=== PATIENT | male | born 1995 | race Caucasian/White ===

== ENCOUNTER 2017-11-09 02:12 | Emergency (ER) | payer SELFPAY ==
[2017-11-09 02:13] VITALS: BP 135/83; PULSE 83; RESP 16; TEMP 36.5; O2SAT 99; BMI 21.0
[2017-11-09] MEDS: Carbamide Peroxide 15 ML Bottle 5 DRP OTIC (03:15)
--- NOTE | 2017-11-09 03:45 | ED.DCSUM_ITS ---
- ER Visit Summary Date of Service: 11/09/17 Chief Complaint: Decreased hearing from left ear History of Present Illness: The patient is a 22 M who presents with decreased hearing from the left ear. He noticed it about 2 days ago after swimming. He complains of some mild pain as well. He also notes congestion and rhinorrhea. No fevers no vomiting review of systems otherwise negative. Physical Examination: Afebrile vitals are normal There is a cerumen impaction on the left after this was removed bilateral tympanic membranes are normal Heart regular rate and rhythm Lungs are clear Abdomen soft Test Results: Not indicated Emergency Department Course and Treatment: Debrox was instilled in the left ear and was irrigated by nursing staff. On reevaluation the cerumen impaction is completely resolved and tympanic membrane is normal. Treatment Plan: [] Disposition: Discharge Impression: Cerumen impaction This note was generated with [employer] dictation software. It may contain incorrect words, spelling, and punctuation that were not noted in review of the chart prior to signing ED Disposition - Plan for ED Patient: Chief Complaint: Ear Problem Referrals: Care Physician,No Primary [Primary Care Provider] -
--- NOTE | 2017-11-09 03:45 | ED.DEP ---
ED Disposition - Plan for ED Patient: Chief Complaint: Ear Problem Instructions: ED Cerumen Impaction Treated Referrals: Care Physician,No Primary [Primary Care Provider] -
[2017-11-09 03:48] VITALS: RESP 16
== END 2017-11-09 03:49 | disposition home or self-care (01) ==
PROVIDERS: Emergency Provider Emergency Medicine
DX: H61.22 Impacted cerumen, left ear (principal); Z72.0 Tobacco use
CPT/HCPCS: 99283

== ENCOUNTER 2020-01-12 18:18 | Observation (INO) | payer OTHER, SELFPAY ==
[2020-01-12] VITALS (8 sets, daily range): BP systolic 123–138; BP diastolic 72–89; PULSE 60–95; RESP 16; TEMP 35.9–36.8; O2SAT 97–100; BMI 21.2
[2020-01-12] MEDS: Ketorolac 30 MG/ML Syringe IM (18:41)
[2020-01-12] MEDS: Diphth,Pertuss(Acell),Tet Vac 0.5 ML Vial IM (18:42)
--- NOTE | 2020-01-12 18:52 | RAD_ITS ---
STUDY: X-RAY - RIGHT KNEE REASON FOR EXAM: Male, 24 years old. LACERATION MEDIAL RT KNEE FROM KNIFE AT WORK TECHNIQUE: 4 view(s) of the knee. COMPARISON: None. FINDINGS: Normal visualized distal femur. Normal visualized proximal tibia and fibula. Normal proximal tibiofibular articulation. Normal medial femorotibial compartment. Normal lateral femorotibial compartment. Normal patellofemoral articulation. There is intra-articular gas in the knee. RAD/Knee 4 or More Views IMPRESSION: Intra-articular gas is noted in the knee. Electronically Signed: Vahe Hurt DO at 19:15 EDT Tel [phone], Service support ,
--- NOTE | 2020-01-12 19:05 | ED.VISSUMM ---
- ER Visit Summary Date of Service: 01/12/20 Chief Complaint: Laceration History of Present Illness: The patient is a 24 M with no primary care physician. He is unsure when his last tetanus shot was. He was cutting a pipe with a curved blade when the blade slipped off and entered his right knee. He reports that he has a sharp pain is 4-10 at rest and 7-10 with movement. He denies any paresthesias distally. He denies any injuries or complaints. Physical Examination: Vitals: Stable. Afebrile. General: Well-nourished and well-developed. Head: Normocephalic atraumatic. Neck: Supple, no lymphadenopathy. No JVD. Nontender. Cardiovascular: Regular rate and rhythm. No murmurs. Respiratory: No respiratory distress. Clear to auscultation bilaterally. Abdominal: Soft, nontender, nondistended, normal bowel sounds. No guarding, rebound, or peritoneal signs. Back: Nontender. Extremities: Approximately 2 cm laceration just medial to the right patellar tendon with no active bleeding. He is neurovascular intact distally. No edema. Skin: Normal color, no rash. Neurologic: Alert and oriented ?3. Cranial nerves II through XII are intact. Normal strength and sensation. Psych: Normal affect. Test Results: X-ray does show intra-articular air. Emergency Department Course and Treatment: Patient had his tetanus updated. He had an IV placed and given Ancef IV. Treatment Plan: The patient was discussed with Dr. Parra. He will be in to take him to the operating room for washout. Disposition: To the operating room in stable condition. Impression: 1. 2 cm laceration right knee with intra-articular extension. This note was generated with [employer] dictation software. It may contain incorrect words, spelling, and punctuation that were not noted in review of the chart prior to signing ED Disposition - Plan for ED Patient: Referrals: Care Physician,No Primary [Primary Care Provider] -
[2020-01-12] MEDS: Cefazolin 2 GM in 0.9% Normal Saline 100 ML IV ×2 (19:50→21:57)
[2020-01-12] MEDS: 0.9% Normal Saline 1,000 ML 1000 ML IV (19:57)
[2020-01-12] MEDS: Bupiv/Epi 0.5% Mpf 30 ML Vial (20:21)
[2020-01-12] MEDS: Epinephrine (1 mg/ml) 1 MG/ML VIAL (20:21)
--- NOTE | 2020-01-12 20:21 | PCM.HP.STD ---
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 Patient did proceed to the emergency department where x-rays demonstrated in particular air was given tetanus and 2 g of Ancef in the emergency room. Past Medical History Allergies No Known Allergies Allergy (Verified 01/12/20 18:20) Home Medications: Ambulatory Orders Medication Instructions Recorded NK 11/09/17 Smoking Status: Current every day smoker Review of Systems Constitutional: Denies: Anorexia, Chills, Fever, Malaise, Weakness, Fatigue Musculoskeletal: Reports: - - Right knee with 3 cm deep laceration to the medial knee medial to the patella superior to the joint line no gross motor deficits distally VTE Information - Inpt Only VTE Present on Admission: No VTE Mechan Device Prophylaxis: SCD's Objective: X-ray demonstrates no bony pathology but there is intra-articular air right knee - Physical Exam Vitals/I&O's: Vital Signs Temp Pulse Resp BP Pulse Ox 98.2 F 82 16 123/72 H 99 01/12/20 19:54 01/12/20 19:54 01/12/20 19:54 01/12/20 18:19 01/12/20 19:54 Oxygen Delivery Method Room Air Weight: 170 lb Body Mass Index (BMI) 21.2 General: Alert, Oriented x3, Cooperative, No apparent distress Laboratory Results 01/12/20 19:30: COVID-19 ([facility]) Pending Assessment/Plan Laceration to right knee intra-articular History of patellar dislocation and ligament injury is unknown Plan to proceed to the OR for irrigation debridement of wound will use arthroscopic instrumentation for thorough washout he was already started on antibiotics will be admitted for 4 postoperative doses of antibiotics IV and then switched to oral on discharge
[2020-01-12 20:33] LABS: Probe Check PASS; Specimen Processing Control PASS
--- NOTE | 2020-01-12 21:40 | DCINST_ITS ---
Discharge Diet: No Restrictions Weight Bearing Status: No weight bearing Additional Instructions: Keep dressing on clean and dry neck 72 hours. After 72 hours may remove dressing and begin showering daily with antibacterial soap. Do not submerge underwater for 3 weeks postoperatively as in tub or pool or bonner. Courage knee range of motion but do not Hyperflex knee past 90 degrees for 6 weeks postoperatively do not bear weight on right lower extremity for 6 weeks postoperatively. Use crutches for assisted ambulation. Follow-up with me Dr. Parra 2 weeks postop. Call with any questions or concerns. Take pain medication as prescribed as needed only can be addictive and abusive. Supplement with Tylenol and [id number] NSAID when able. Take antibiotic as prescribed. Call with any fever over 101 that is treated with Tylenol. Allergies/Adverse Reactions: Allergies No Known Allergies Allergy (Verified 01/12/20 18:20) Medications to take at Discharge Cephalexin [Keflex] 500 mg PO Q8 5 Days #15 cap 01/12/20 Oxycodone [Oxyir] 5 mg PO Q6H PRN PRN #30 tab 01/12/20 The following prescriptions were given: Cephalexin [Keflex] 500 mg PO Q8 5 Days #15 cap Prescription Printed Oxycodone [Oxyir] 5 mg PO Q6H PRN PRN #30 tab PRN Reason: Pain Or Fever Prescription Printed Primary Care Physician: Care Physician,No Primary [Primary Care Provider] - Test Results: Test results from this visit will be discussed in further detail at your follow- up appointment, if applicable. Please Follow Up With: Jj Parra DO - 2 weeks
--- NOTE | 2020-01-12 21:43 | OP.PCM_ITS ---
Report of Operation Date of Procedure: 01/12/20 Description of Surgical Findings:: Preoperative diagnosis: Intra-articular laceration to right knee Postoperative diagnosis: Intra-articular laceration right knee with laceration to anterior horn medial meniscus Procedure: Irrigation and debridement and arthroscopic irrigation and debridement with meniscal repair Anesthesia: General EBL: 5 Tourniquet time 39 minutes at 300 mmHg Complications: None Condition: Stable to PACU Indication for procedure: 24-year-old male was using a hook blade at work and had slipped injuring his right knee he states he has had history of patellar instability and ligament injuries in the past but no prior surgeries he did have an x-ray in the emergency room department which demonstrated intra- articular air and was determined to best treat the wound with a irrigation and debridement. Risk benefits and alternatives were reviewed including risk of bleeding infection nerve, artery, bone, tissue damage, blood clot need for further surgery and continued pain. Procedure: Patient was met the preoperative holding area once again the upper extremities then 5 by both patient and physician was marked patient was brought back to the operating room and will cart and transfer the operative table supine position. Anesthesia was started well-padded tourniquet was placed in the right lower extremity the knee was examined there is no patellar instability there is no collateral ligament instability there is no cruciate instability with negative pivot shift. There was approximately 3 cm deep wound to the anterior medial side of the knee this was thoroughly irrigated with a Pulsavac irrigation system this was followed by a stab incision made in the lateral portal and the introduction of an arthroscopic camera the knee was thoroughly irrigated and evaluated with over 6 L of irrigation that was impregnated with Ancef the ACL was intact the lateral compartment was intact however there was a vertical tear of the anterior horn medial meniscus in line with the laceration. After thorough irrigation was completed a meniscal repair was performed using meniscal mender device passing a horizontal 2-0 FiberWire stitch with excellent repair arthroscopic images were taken and saved the laceration and lateral portal were closed with 3-0 nylon subcutaneous tissue was injected with 0.5% Marcaine with epinephrine dressing was applied in the form of Xeroform 4 x 4 ABD web roll and an Brent wrap patient tolerated the procedure well he will be admitted for 23-hour observation with 2 postoperative doses of IV Ancef and then switched to oral Keflex for 5 days he will be toe-touch weightbearing only for 6 weeks postop secondary to his meniscal repair and not to bend his knee past 90 degrees for 6 weeks as well. Will follow-up 2 weeks postop
[2020-01-12] MEDS: Lactated Ringers 1,000 ML 100 ML IV (21:53)
[2020-01-13 01:00] VITALS: BP 123/80; PULSE 76; RESP 16; TEMP 36.6; O2SAT 100
[2020-01-13] MEDS: oxyCODONE 5 MG Tablet PO ×3 (01:02→09:28)
[2020-01-13 03:02] VITALS: BP 124/86; PULSE 62; RESP 16; TEMP 36.7; O2SAT 98
[2020-01-13] MEDS: Cefazolin 2 GM in 0.9% Normal Saline 100 ML IV (05:55)
[2020-01-13 06:45] VITALS: BP 128/53; PULSE 53; RESP 16; TEMP 36.6; O2SAT 97
[2020-01-13] MEDS: Lactated Ringers 1,000 ML 100 ML IV (09:28)
[2020-01-13 10:45] VITALS: BP 121/64; PULSE 66; RESP 18; TEMP 36.6; O2SAT 96
--- NOTE | 2020-01-13 10:50 | NURSING ---
awaiting crutches and PT eval
--- NOTE | 2020-01-13 10:59 | NURSING ---
spoke with dr butler, he gave v.o. for d/c once pt has crutches and instructions and verbalizes understanding that he is to have no weight bearing right leg
== END 2020-01-13 11:30 | disposition home or self-care (01) ==
LOC: ED 18:55 → SDC 19:39 → MS3 21:24 → SDC 22:59 → MS3 22:59
PROVIDERS: Anesthesiology; Admitting Provider Orthopaedic Surgery; Emergency Provider Emergency Medicine; Visit Provider Orthopaedic Surgery
PROC: (CPT 29870; principal; 2020-01-12 20:00)
DX: S81.011A Laceration without foreign body, right knee, initial encounter (principal); W31.89XA Contact with other specified machinery, initial encounter; Y93.89 Activity, other specified; Y92.63 Factory as the place of occurrence of the external cause; Y99.0 Civilian activity done for income or pay; Z23 Encounter for immunization; F17.200 Nicotine dependence, unspecified, uncomplicated
CPT/HCPCS: 01400; 29882; 73564; 87635; 90471; 90715; 96361; 96365; 96372; 97161; 99251; 99284; J7030; J7120; A4216; G0463; J2405; U0003

== ENCOUNTER 2020-04-01 22:53 | Emergency (ER) | payer BC, SELFPAY ==
[2020-03-24 14:12] VITALS: BMI 21.2
[2020-04-01 22:53] VITALS: BP 146/93; PULSE 83; RESP 15; TEMP 36.2; O2SAT 100; BMI 21.5
--- NOTE | 2020-04-01 23:22 | ED.VIS.GEN ---
History of Present Illness Chief Complaint: Dental Informant: Patient Onset: Weeks Context: Gradual Onset Current Severity: Moderate Maximum Severity: Moderate Narrative: Patient presents secondary to left upper dental pain. Patient states symptoms been ongoing for 2 weeks or so. He states he has had problems with this tooth before and he will usually use topical numbing medicine and within a day or so pain goes away. This time it is been more persistent. He does have an appointment to see a dentist tomorrow, but was at work tonight and pain became much more severe. He does report the tooth has been chipping away for some time. Past Medical History - Allergies and Home Meds Allergies/Adverse Reactions: Allergies No Known Allergies Allergy (Verified 04/01/20 22:55) Past Medical History: None Lives: With Family Smoking Status: Current every day smoker Review of Systems General: Denies: Chills, Fever Eyes: Denies: Visual changes - bilaterally ENT: Reports: - - Left upper dental pain. Denies: Bilateral ear pain Cardiovascular: Denies: Chest pain Respiratory: Denies: Dyspnea Gastrointestinal: Denies: Abdominal pain, Nausea, Vomiting Musculoskeletal: Denies: Swelling, Extremity Pain Skin: Denies: Rash Hematologic: Denies: Easy bruising, Easy bleeding Allergy: Denies: Uticaria Physical Exam Vital Signs/Narrative: Vital Signs Temp Pulse Resp BP Pulse Ox 04/01/20 22:53 97.1 F L 83 15 146/93 H 100 Inital Vital Signs reviewed: Yes General: Well nourished, Well developed Head: Normocephalic Eyes: Perrl, EOMI ENT: Moist mucous membranes, - - Multiple dental caries. Left maxillary second and third molars are decayed, the third down to the gumline. Mild surrounding gum edema. No posterior pharyngeal drainage or abnormalities noted. Uvula is midline. Patient is tolerating secretions well and has a strong voice. Neck: Supple, - - Trachea midline. No lymphadenopathy. Cardiovascular: Regular rate, Regular rhythm, No murmurs Respiratory: No distress, CTA bilaterally Abdomen: Soft, Nontender Back: Nontender Extremities: Nontender Skin: Normal color, No rash Neurological: Alert, Oriented x3, Normal Strength, Normal Sensation Psychological: Normal affect Diagnostic/Tx/Re-eval - Medical Decision Making Patient be treated with Naprosyn and Pen-Vee K, first doses given here. He is to follow-up with his dentist tomorrow as scheduled. ED Disposition - Plan for ED Patient: Disposition: Home or Assisted Living Diagnosis: Pain, dental Instructions: ED Tooth Pain Prescriptions: Naproxen [Naprosyn] 500 mg PO BID PRN PRN #20 tab PRN Reason: Pain Score 4-10 Prescription Printed Penicillin V Potassium 500 mg PO 4X/DAY #40 tab Prescription Printed Additional Instructions: Follow-up with your dentist tomorrow as scheduled.
[2020-04-01 23:29] VITALS: BP 148/92; PULSE 91; RESP 14; O2SAT 99
[2020-04-01] MEDS: Naproxen 500 MG Tablet PO (23:31)
[2020-04-01] MEDS: Penicillin Vk 250 MG Tablet 500 MG PO (23:31)
== END 2020-04-01 23:32 | disposition home or self-care (01) ==
PROVIDERS: Emergency Provider Emergency Medicine
DX: K08.89 Other specified disorders of teeth and supporting structures (principal); K02.9 Dental caries, unspecified; F17.200 Nicotine dependence, unspecified, uncomplicated
CPT/HCPCS: 99283

== ENCOUNTER 2020-04-07 00:47 | Emergency (ER) | payer OTHER, BC, SELFPAY ==
[2020-04-07 00:48] VITALS: BP 135/84; PULSE 100; RESP 15; TEMP 36.9; O2SAT 98; BMI 22.0
--- NOTE | 2020-04-07 00:56 | RAD_ITS ---
STUDY: X-RAY - RIGHT HAND REASON FOR EXAM: Male, 24 years old. Smashed right fifth finger on machine at work. TECHNIQUE: 3 view(s) of the hand. COMPARISON: None. FINDINGS: Normal radiocarpal articulation. Normal distal radioulnar joint. Normal visualized carpal bones. Normal carpal articulations Normal carpometacarpal articulation of the thumb. Normal second through fifth carpometacarpal joints. Normal metacarpi. Normal metacarpophalangeal joint of the thumb. Normal interphalangeal joint of the thumb. Normal proximal and distal phalanges of the thumb. Normal metacarpophalangeal joints of the second through fifth fingers. Normal proximal and distal interphalangeal joints of the second through fifth fingers. Oblique minimally displaced comminuted fracture tuft of the distal phalanx ring finger. Oblique comminuted displaced fracture tuft of the distal phalanx little finger along with a soft tissue avulsion. RAD/Hand Min 3 Views IMPRESSION: Comminuted tuft fractures distal phalanx of the ring and little fingers. Soft tissue avulsion tip of the distal phalanx little finger. Electronically Signed: Gustavo Gonzales MD at 1:31 EDT , Service support ,
--- NOTE | 2020-04-07 01:29 | ED.VISSUMM ---
- ER Visit Summary Date of Service: 04/07/20 Chief Complaint: Right fifth finger injury History of Present Illness: The patient is a 24 M who presents with injury to his right fifth finger that occurred tonight. Patient states he was working on a machine when a part smashed the tip of his right fifth finger. Patient describes the pain as throbbing. Patient states nothing makes the pain better or worse. Patient denies any paresthesias or weakness. Patient states his last tetanus was within 5 years. Patient states the bleeding stopped it for several minutes with pressure. Patient denies any other injuries. Physical Examination: Vital signs are stable. Patient is afebrile. Patient is in no acute distress. Musculoskeletal exam reveals tenderness over the distal phalanx of the right fifth finger. There is a full-thickness stellate laceration over the distal phalanx of the right middle finger involving the nail bed and nail plate. There is no obvious deformity noted. Range of motion was limited in all motions of the DIP joint of the right fifth finger secondary to pain. There is also mild tenderness over the distal phalanx of the right ring finger. There is no deformity noted. There is good range of motion. Sensation was intact to light touch in all digits. Capillary refill was less than 2 seconds in all digits. Test Results: X-rays of the right fifth finger were obtained. There is a comminuted fracture of the distal phalanx of the fourth and fifth digits. These were interpreted by the radiologist and reviewed by myself. Emergency Department Course and Treatment: Patient was given a dose of Ancef here. Patient was given a dose of [place] here. The wound was cleaned and irrigated with copious amounts of normal saline. The wound was anesthetized with 1% plain lidocaine via digital block. The wound was closed with 5 simple interrupted #5-0 nylon sutures and 3 simple interrupted #5-0 Vicryl Rapide sutures in the nailbed under sterile technique. Patient tolerated the procedure well. Bacitracin dressing was applied. There is still a small remnant of the nail plate in the eponychial fold. This was left in place. Aluminum foam splint was applied to the fifth finger. Patient was given a prescription for [place] and Keflex. Patient was given referral to Dr. Carey for follow-up care in 5 to 7 days. Patient understood and was agreeable with the plan. All questions were answered. Disposition: Discharge home Impression: 1. Open fracture distal phalanx right fifth finger 2. Fracture distal phalanx right ring finger This note was generated with [employer] dictation software. It may contain incorrect words, spelling, and punctuation that were not noted in review of the chart prior to signing ED Disposition - Plan for ED Patient: Disposition: Home or Assisted Living Diagnosis: Open fracture of distal phalanx of right little finger, Closed fracture of distal phalanx of right ring finger Instructions: ED Fx Finger Open Prescriptions: Cephalexin [Keflex] 500 mg PO Q6 #40 cap Prescription Printed Hydrocodone Bitart/Apap 5-325 [[place] 5MG-325MG] 1 tab PO Q6H PRN PRN 3 Days #10 tab PRN Reason: Pain Prescription Printed Referrals: [facility] [GROUP OF PHYSICIANS] - Stone Carey MD [STAFF PHYSICIAN] -
[2020-04-07] MEDS: BACITRACIN 15 GM Tube 1 APPLIC TOPICAL (02:01)
[2020-04-07] MEDS: Cefazolin 1 GM/50 ML BAG IV (02:02)
[2020-04-07] MEDS: Lidocaine/Epi/Tetracaine 50 ML 1 APPLIC TOPICAL (02:40)
[2020-04-07] MEDS: HYDROcodone Bitartrate/Apap 5/325 Tablet PO (04:52)
[2020-04-07 05:01] VITALS: BP 138/94; PULSE 84; RESP 16; O2SAT 98
== END 2020-04-07 05:16 | disposition home or self-care (01) ==
PROVIDERS: Emergency Provider Emergency Medicine
DX: S62.636B Displaced fracture of distal phalanx of right little finger, initial encounter for open fracture (principal); S62.634A Displaced fracture of distal phalanx of right ring finger, initial encounter for closed fracture; W31.9XXA Contact with unspecified machinery, initial encounter; Y93.9 Activity, unspecified; Y92.9 Unspecified place or not applicable; J45.909 Unspecified asthma, uncomplicated; F17.200 Nicotine dependence, unspecified, uncomplicated
CPT/HCPCS: 12002; 73130; 96365; 99285; A4216

== ENCOUNTER 2020-04-09 14:00 | Outpatient (RCR) | payer OTHER, SELFPAY ==
[2020-02-25 12:53] VITALS: BMI 21.2
--- NOTE | 2020-03-12 15:16 | HP.PTEVAL_ITS ---
Patient's Visit Information CHAPO SOTELO Jr. is a 24 year old M referred to Physical Therapy by Dr. Jj Parra DO with a diagnosis of R knee meniscus repair 01/12/20. Date of Evaluation: 03/12/20 Physical Therapist: Masoud Ferro, DPT, OCS, CSCS - Visit Plan Frequency: 3x /Week Duration: 4-6 Weeks Plan: 3x/week for 4 weeks for. 1. R patellar mobs and knee flexion ROM. 2. rollout and stretch R quad. 3/ strengthen B hip stabs and R quad and HS to elizabeth erance. 4. Wrok type conditioning pulling and climbing. - Subjective 2 months ago cut leg through meniscus and recovery ever since. Had to have surgery to clean out meniscus. Knee was fine prior. Since surgery has been OK. Still gets pain with walking long distances feels like it wants to give out adn hurts. Comfortable at rest. 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 Sits 1-2x/hour. That helps keep the pain down. Pain still gets to 5/10 after work. Cannot climb ladders or hevy pipe lifting yet from surgery and will base it on his therapy. Is on restircted duty at work. Sleep is ok. Activities at home are OK, dresses self. 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 - Pain R knee Pain Intensity (Out of 10): 0 Pain Intensity Range: 0, 5 - Objective Walks normal without gait deviation today, trasnfers normal. Steps reciprocal with mild R weakness. Incisions healed well with mild scar tissue anteriorly. 0-135 R AROM, adn 0-146 L knee. Some pain end range R knee flexion. HS max tight B, quad min tight B. ITB OK. Hip and ankle aROM WFL and painfree. Reflexes 2/3 patella and achilles B. Sensation LE WNL to gross light touch. Strength 4/5 R knee ext adn 4- flexion vs 4+ L knee, hip strength ext adn abd 4- B, flexion 4/5 and IR at oppoiste hip. ankles 4+/5 B. - Goals Goal 1:: Full aROM R knee without pain Goal Time Frame: 2-4 Weeks Goal 2:: Strength 4+/5 R knee flexiona dn extension without pain Goal Time Frame: 2-4 Weeks Goal 3:: Steps without weakness or antalgia Goal Time Frame: 2-4 Weeks Goal 4:: Pt walk community distances and stand at work without increased pain Goal Time Frame: 4-6 Weeks Goal 5:: Pt ready to be released to full duty including climbing ladders and pulling heavy pieces. Goal Time Frame: 4-6 Weeks - Rehabilitation Potential Physical Therapy Diagnosis: s/p r knee meniscus repair 01/11 Rehabilitation Potential: Good - Anticipated Interventions Patient/Client Instruction: Educate patient on: Condition, Plan of Care For the Purpose of:: To decrease pain, To increase ROM, To improve muscle performance and motor function, To increase tolerance to activity/condition/position Therapeutic Exercise to Include: Strength training, Flexibilty training, Gait and locomotor training, Passive ROM, Active ROM For the Purpose of:: To decrease pain, To increase ROM, To improve muscle performance and motor function, To increase tolerance to activity/condition/position, To improve ability of physical actions for home/community/work/leisure Manual Therapy Techniques to Include: Mobilization, Soft tissue mobilization For the Purpose of:: To increase ROM Thank you for the opportunity to evaluate your patient. For Medicare and Medicare HMO plans, please review the plan of care and approve it. It will need to be FAXED BACK to us at [phone] for Medicare purposes. For Medicare only, by signing this I certify the plan of care. Please let me know if there are questions or concerns regarding this plan of care. Physician Signature: Date:
--- NOTE | 2020-05-20 18:35 | HP.PT.NRP ---
CHAPO KINGRICHY Monson was seen in my office for initial evaluation on 03/12/20. The following Plan of Care was established for this patient: Initial Frequency: 3x /Week Initial Duration: 4-6 Weeks Patient/Client Instruction: Educate patient on: Condition, Plan of Care For the Purpose of:: To decrease pain, To increase ROM, To improve muscle performance and motor function, To increase tolerance to activity/condition/position Therapeutic Exercise to Include: Strength training, Flexibilty training, Gait and locomotor training, Passive ROM, Active ROM For the Purpose of:: To decrease pain, To increase ROM, To improve muscle performance and motor function, To increase tolerance to activity/condition/position, To improve ability of physical actions for home/community/work/leisure Manual Therapy Techniques to Include: Mobilization, Soft tissue mobilization For the Purpose of:: To increase ROM This patient was last seen in our office 04/09/20. Pertinent comments regarding their Physical therapy will appear below: Pt seen 5 visits of POC with multiple no shows. He did not attend his last scheduled visit and I will discontinue at this time due to nonattendance. At this point I will be discontinuing this patient from physical therapy. I would be happy to see this patient again in the future if found appropriate by the physician. Thank you! Masoud Ferro, DPT, OCS, CSCS
== END 2020-04-09 19:00 | disposition home or self-care (01) ==
LOC: PT 14:00
PROVIDERS: Referring Provider Orthopaedic Surgery; Visit Provider Orthopaedic Surgery
DX: Z47.89 Encounter for other orthopedic aftercare (principal)
CPT/HCPCS: 97110; 97161

== ENCOUNTER 2020-04-18 05:43 | Day surgery (SDC) | payer OTHER, SELFPAY ==
[2020-04-16 15:48] VITALS: BMI 20.9
--- NOTE | 2020-04-17 17:18 | PCM.HP.BLA ---
History and Physical Date of Admission: 04/18/20 HISTORY OF PRESENT ILLNESS 24 year old man presents with distal phalanx fractures right small finger and right ring finger from a machine injury at work on 04/07/20. He went to the ED. X-rays showed comminuted tuft fractures distal phalanx of the ring and little fingers. There was an associated skin laceration and nail bed injury involving the small finger that was also repaired. There was no laceration involving the ring finger. The fingers were splinted. He was discharged on Keflex. He has returned to work with restrictions of one handed work only. He is doing ok with these restrictions. He presents at this time for further evaluation and treatment. 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) Contact with machinery as cause of accidental injury (Acute) Injury of nail bed of finger of right hand (Acute) Subungual hematoma of right ring finger (Acute) Open fracture of distal phalanx of right little finger (Acute) Fracture of distal phalanx of right ring finger (Acute) Arthritis (Acute) Asthma (Acute) PAST SURGICAL HISTORY ALLERGIES No Known Allergies MEDICATIONS Cephalexin [Keflex] 500 mg PO Q6 #40 cap 04/07/20 [Rx Confirmed 04/16/20] doxycycline hyclate 100 mg capsule 100 mg PO BID #60 cap 04/16/20 [Rx Confirmed 04/16/20] FAMILY HISTORY Other - Alcoholism, Anxiety, Arthritis, Asthma, Breast cancer, CVA (cerebral vascular accident), Cervical cancer, Depression, Diabetes, Heart disease, History of blood transfusion, Hypertension, Osteoporosis, Ovarian cancer, Seizures, Skin cancer, Suicide attempt SOCIAL HISTORY Smoking Status: Current every day smoker alcohol intake: current substance use type: does not use REVIEW OF SYSTEMS General - Denies fever, fatigue, and weight loss. Eyes - Denies cataracts and glaucoma. ENT - Denies nasal congestion and sore throat. Endocrine - Denies excessive thirst and urination. Skin - Denies suspicious lesions and skin cancer. Musculoskeletal - Denies joint pain, joint stiffness, weakness of muscles and joints, back pain, and arthritis. He has distal phalanx fractures right small finger and right ring finger. Neuro - Denies headaches. Cardiovascular - Denies chest pain, fatigue, and shortness of breath with exertion. Psych - Denies anxiety and depression. Respiratory - Denies chronic cough and shortness of breath. He has asthma. Patient is a smoker. Gastrointestinal - Denies nausea, vomiting, diarrhea, and constipation. Hematologic - Denies abnormal bruising and bleeding. Genitourinary - Denies hematuria and urinary frequency. PHYSICAL EXAMINATION General - Alert and Oriented. HEENT - PERRL. EOMI. Throat is clear. Neck - Supple and nontender. No cervical adenopathy. Lungs - Clear to auscultation. Heart - Regular rate and rhythm. Abdomen - Soft and nondistended. Extremities - FROM left upper extremity. No axillary adenopathy. Radial pulses are palpable. Patient is left hand dominant. On the right hand, he has recent distal phalanx fractures involving the small finger and ring finger. On the ring finger, there is an associated subungual hematoma. Mild tenderness. No skin lacerations noted. On the small finger, there is distal nail complex loss, about 50-60%. Proximal nail is noted in the eponychial fold. There is some exposed nail bed distal to that with some suture repair. No exposed bone noted. Laceration at volar tip of the small finger is suture repaired. There is an ulnarly based skin flap that is viable. Neuro - CN II-XII grossly intact. Psych - Normal mood and affect. ASSESSMENT 1. Open fracture distal phalanx right small finger. 2. Nail bed injury right small finger. 3. Distal phalanx fracture right ring finger. 4. Subungual hematoma right ring finger. 5. Contact with machinery as cause of accidental injury. 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 Smoker. PLAN X-rays reviewed. It shows comminuted tuft fractures distal phalanx of the ring and little fingers. The small finger fracture is displaced as well. He is currently on Keflex. Will change his antibiotics to Doxycycline as it has better Staph coverage with bone injury. He is at risk in the future of developing osteomyelitis. Recommend to the patient to proceed with operative intervention. For the ring finger, I will drain and evacuate the subungual hematoma. I suspect there will be an associated nail bed injury that will be repaired. Will proceed with skeletal fixation with Kwire fixation. For the small finger, the fracture fragment is smaller and displaced. Since it is an open fracture, debridement will be done and tissue sent for culture. Any small bony fragments will be debrided as well. Will attempt ORIF with Kwire fixation. If the fracture fragment is too small for adequate fixation, then will debride it to minimize development of a painful bone cyst in the future. Will evaluate the nail bed repair to make sure it is intact without evidence of exposed bone. If need be, a revision of the nail bed repair would be done under loupe magnification. If soft tissue nail bed coverage over the bone is suboptimal, would proceed with complete removal of the nail complex and revision amputation. Patient voices understanding. Surgery will be done under general anesthesia on an outpatient basis. Will schedule the surgery later on this week. Postop he will need OT for range of motion exercises, strengthening, and edema management. Postop he will return to work when he is not needing narcotics and with the current restrictions of one handed work. Patient was informed of the risks and complications of the procedure including alternatives to surgery. These were discussed with the patient personally. Patient voices understanding and wishes to proceed. Some of the risks and complications were included in a form from the [employer]. Some of the risks and complications that were discussed included but were not inclusive of failure to diagnose including symptom relief, pain, infection, numbness, stiffness, loss of digit, RSD (CRPS), need for further surgery, contracture, and wound healing problems. Encouraged patient to stop smoking as it may have deleterious effects on wound healing. We discussed the current risks associated with COVID-19. While it is understood that there is a community spread of COVID-19, the risk of kaila COVID-19 while at [facility] ([facility]) is very low; however, the risk cannot be completely mitigated because of the community spread of the disease. We discussed in detail the risk of exposure to and/or potential harm posed by the COVID-19 virus with having a surgery/procedure at this time versus the risk of delaying the surgery/procedure. It is not possible to know either the risk of delaying the surgery or procedure or chance of getting an infection with perfect accuracy, but a joint decision was made to proceed at this time with the scheduled surgery/procedure as indicated on the consent form. Patient was notified that we will need to comply with any screening or testing [facility] wishes to perform or that surgery may be delayed for any positive results. Discussed with the patient that I was tested for COVID-19 on 12/13/19 which was negative and on 12/27/19 which was negative and on 01/10/20 which was negative and on 01/24/20 which was negative and on 02/07/20 which was negative and on 02/28/20 which was negative and on 03/20/20 which was negative. My testing regimen at this time is to be COVID-19 tested every 2 weeks or so. Procedure Criteria Procedure Type: Elective COVID Risk Discussion: The surgeon/proceduralist and patient have discussed in detail the risk of exposure to and/or potential harm posed by the COVID-19 virus with having a surgery/procedure at this time versus the risk of delaying the surgery/procedure. It is not possible to know either the risk of delaying the surgery or procedure or chance of getting an infection with perfect accuracy, but a joint decision was made between the patient and the surgeon/proceduralist to proceed at this time with the scheduled surgery/procedure as indicated on the consent form.
[2020-04-18 06:20] VITALS: BP 115/68; PULSE 68; RESP 16; TEMP 37.1; O2SAT 100; BMI 20.8
[2020-04-18] MEDS: Lactated Ringers 1,000 ML 100 ML IV (06:27)
[2020-04-18] MEDS: Vancomycin IV 1,000 MG/200 ML BAG 200 MG IV (06:27)
--- NOTE | 2020-04-18 07:30 | BON_PTH ---
PATIENT: CHAPO SOTELO Jr. LOC: [facility] – [place], [place] U#:[id number] AGE/SX: 24/M ROOM: RE04/18/[address]: Dr. Stone Carey MD : [id number] BED: DIS: 04/18/2020 SPEC #: [id number] RECD: 04/18/20 11:32 STATUS: MONCHO SHYANNE #: [id number] BRANDON: 04/18/20 07:[address]: Stone Carey DEPT: SURGICAL PATHOLOGY RECD BY: Elin Pollack ENTERED: 04/18/20 11:53 SP TYPE: Bone OTHR DR: No Primary Care Phys Tissues: A - TISSUE SURGICALLY REMOVED B - Bone of hand, NOS Procedures: Decalcification bone/plaque Surgery Specimen Level III HEADER OPERATION: Incision and drainage subungual hematoma right finger, repair PRE-OP DIAGNOSIS: Open fracture distal phalanx right small finger; nailbed injury right small finger; distal phalanx fracture right ring finger; subungual hematoma right ring finger TISSUE SUBMITTED: A - Soft tissue right small finger, B - Bone right small finger MICROSCOPIC DIAGNOSIS A. Soft tissue right small finger: Fragments of skin with underlying tissue with focal ulceration and associated acute inflammation, clinically fractures of distal phalanx right small finger. B. Bone right small finger: Fragments of bone with reactive changes and fibrinous exudation. Fragments of fibroconnective tissue with chronic inflammation and reactive changes. AMINAH:zachary 04/21/20 MICROSCOPIC DESCRIPTION Slides are reviewed. GROSS DESCRIPTION A - Received in fixative is one container labeled with the patient's name and designated soft tissue right small finger. The specimen consists of multiple pieces of skin with underlying tissue that in aggregate measure 3 x 2.5 x 0.3 cm. The larger pieces are bisected. The entire specimen is submitted in one cassette. B - Received in fixative is one container labeled with the patient's name and designated bone right small finger. The specimen consists of multiple fragments of bone mixed with soft tissue that in aggregate measure 2 x 1.5 x 0.3 cm. The entire specimen is submitted in one cassette after short decalcification. / AMINAH:zachary 04/18/20 TC:2 CPT: 68104 x2, 73813
--- NOTE | 2020-04-18 08:10 | RAD_ITS ---
STUDY: X-RAY - RIGHT HAND, ATTENTION FOURTH FINGER REASON FOR EXAM: Male, 24 years old. ORIF RIGHT 4TH PHALANX TECHNIQUE: 4 intraoperative view(s) of the finger were obtained. COMPARISON: None. FINDINGS: Intraoperative imaging provided for pinning fixation of the distal phalangeal fracture of the fourth digit. RAD/Finger(s) Min 2 Views IMPRESSION: Intraoperative imaging provided for pinning of the distal phalangeal fracture of the fourth digit. Electronically Signed: Ayaan Weinstein, at 14:53 EST , Service support ,
[2020-04-18] MEDS: Mupirocin Ointment 22gm Tube 1 APPLIC (10:00)
--- NOTE | 2020-04-18 10:08 | OP.PCM_ITS ---
Report of Operation Date of Procedure: 04/18/20 Pre-Operative Diagnosis: 1. Open fracture distal phalanx right small finger. 2. Nail bed injury right small finger. 3. Distal phalanx fracture right ring finger. 4. Subungual hematoma right ring finger. 5. Contact with machinery as cause of accidental injury. 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 Smoker. Post-Operative Diagnosis: 1. Open fracture distal phalanx right small finger. 2. Complex stellate nail bed injury right small finger with soft tissue loss. 3. Open fracture distal phalanx right ring finger. 4. Subungual hematoma right ring finger. 5. Nail bed injury right ring finger. 6. Contact with machinery as cause of accidental injury. 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 8. Smoker. Surgery/Procedure Performed:: 1. Incision and drainage and evacuation subungual hematoma right ring finger. 2. Repair nail bed injury right ring finger. 3. Percutaneous skeletal fixation distal phalanx fracture right ring finger with Kwire fixation (.035 in). 4. Excisional debridement distal phalanx fracture right small finger with partial ostectomy for osteomyelitis. 5. Revision amputation right small finger through proximal distal phalanx. Description of Surgical Findings:: 24 year old man presents with distal phalanx fractures right small finger and right ring finger from a machine injury at work on 04/07/20. He went to the ED. X-rays showed comminuted tuft fractures distal phalanx of the ring and little fingers. There was an associated skin laceration and nail bed injury involving the small finger that was also repaired. There was no laceration involving the ring finger. The fingers were splinted. He was discharged on Keflex. He has returned to work with restrictions of one handed work only. He is doing ok with these restrictions. Patient was informed of the risks and complications of the procedure including alternatives to surgery. These were discussed with the patient personally. Patient voices understanding and wishes to proceed. Some of the risks and complications were included in a form from the [employer]. Some of the risks and complications that were discussed included but were not inclusive of failure to diagnose including symptom relief, pain, infection, numbness, stiffness, loss of digit, RSD (CRPS), need for further surgery, contracture, and wound healing problems.Encouraged patient to stop smoking as it may have deleterious effects on wound healing. Total tourniquet time right ring finger - 75 minutes. Total tourniquet time right small finger - 72 minutes. I used K-wire fixation right ring finger - .035 in K-wires x2. quality specialist: None Type of Anesthesia:: General Specimen's removed: 1. Nail bed tissue right ring finger to Microbiology. 2. Soft tissue right small finger to Pathology and Microbiology. 3. Bone right small finger to Pathology and Microbiology. Drains: None. Estimated Blood Loss (mL): 5 ml. Description of Procedure: Patient was taken to OR in supine position and was placed under general anes thesia. The left hand was prepped and draped in the usual fashion. SCD's were placed for DVT prophylaxis. Perioperative antibiotics were given intravenously. For the procedure, I wore an N95 mask and wore proper eyewear protection. Using xylocaine with epinephrine, digital metacarpal blocks were infiltrated for postoperative pain relief. I then applied digital tourniquets on both the right ring finger and right small finger. I removed the nail plate from the right ring finger with a freer elevator. There was an oblique nail bed injury in the proximal region of the nail bed. The edges of the wound were debrided and sent to Microbiology for culture. At the base of the wound was palpable bone making this an open fracture as well. I approximated the nail bed injury with 6-0 Vicryl simple interrupted sutures. I then addressed the right small finger as I was waiting for the C-arm in order to proceed with skeletal fixation for the right ring finger fracture. I removed the proximal remnant of the nail plate using a freer elevator. There was evidence of nail bed repair from the ED. The nail bed injury appeared complex and stellate. The sutures were starting to separate due to damaged tissue. Exposed bone was seen. The distal phalanx fracture was comminuted and in several pieces. It could not be salvaged with an attempt at K-wire fixation. The comminuted nature of the fracture combined with the stellate nature of the nail bed injury, we were lacking in soft tissue coverage over the bone. Preoperatively, I discussed with the patient the option of maintaining length w ith excision of the remaining nail complex followed by a two stage cross finger flap versus a revision amputation, hopefully leaving the proximal distal phalanx where the tendon insertions are. He opted for a revision amputation if necessary. I sharply debrided the bony fracture fragments with a rongeur. I also debrided the distal end of the remaining distal phalanx to aid in wound closure as well as to evaluate for osteomyelitis. A rasp was used to smooth out the bony edge. I then excised the remaining nail complex including overlying skin. The extensor tendon insertion was maintained. I was able to close the volar skin over to meet the dorsal skin. I was able to preserve the DIP joint. The wound was irrigated with saline. I removed the tourniquet from the right small finger after 72 minutes. Hemostasis was obtained with electrocautery. The skin edges were viable. I closed the amputation stump with 5-0 Monocryl interrupted sutures for the deep dermis and subcutaneous tissue. The skin was approximated with 5-0 Nylon simple interrupted sutures and vertical mattress interrupted sutures. Half the soft tissue and bone were sent to Pathology for analysis to evaluate for osteomyelitis and half the soft tissue and bone were sent to Microbiology for culture. A positive culture will necessitate antibiotic therapy. The C-arm was now available. I removed the tourniquet from the right ring finger after 75 minutes. Some bleeding from the nail bed easily controlled with compression. I proceeded with percutaneous skeletal fixation of the distal phalanx fracture right ring finger. I placed .035 in K-wire for fixation. I used 2 wires. One was placed obliquely through the fracture. The other one was placed longitudinally through the DIP joint into the distal middle phalanx. The skeletal fixation was confirmed through the C-arm. The ends of the K-wire fixation were cut and rubber caps applied. I then placed the nail plate over the repaired nail bed and secured to the paronychial and eponychial areas with 5-0 Nylon interrupted sutures. Antibiotic ointment was applied to the suture lines and around the K-wires and covered with Xeroform gauze and 2x2 gauze and wrapped with 2 inch lalit wrap. Patient tolerated the procedure well and was sent to PACU in satisfactory condition. Postoperatively, patient had x-rays done to confirm the placement of the K-wire fixation. Patient will be sent home on antibiotics and pain medication. Patient will followup in a week for a wound check and for discussion of the pathology report and for discussion of the microbiology report. A positive culture will necessitate antibiotic therapy. The sutures will be removed in 2-3 weeks. The K-wires will be removed in 6-8 weeks. Will obtain serial x-rays to monitor the healing of the fracture. Grafts/Implants Used: .035 in Kwire fixation x2. - Complications None. - Admit VTE Documentation VTE Present on Admission: No VTE Mechan Device Prophylaxis: SCD's VTE Pharm Prophylaxis ordered?: No Surgery Charges CPT - 72158 ICD-10 - S60.141A, S69.91xA, S62.634B, W31.9xxA, Y92.63, S62.636B, F17.200 39588 S69.91xA, S60.141A, S62.634B, W31.9xxA, Y92.63, S62.636B, F17.200 53722 S62.634B, S69.91xA, S60.141A, W31.9xxA, Y92.63, S62.636B, F17.200 10859 S62.636B, S69.91xA, W31.9xxA, Y92.63, S62.634B, S60.141A, F17.200 86971 S62.636B, S69.91xA, W31.9xxA, Y92.63, S62.634B, S60.141A, F17.200
[2020-04-18 10:22] VITALS: BP 115/68; BP 127/83; PULSE 82; RESP 16; TEMP 36.1; O2SAT 98
[2020-04-18 10:30] VITALS: BP 113/57; BP 115/68; PULSE 93; RESP 16; O2SAT 98
--- NOTE | 2020-04-18 10:38 | DCINST_ITS ---
You will use the following diet at home:: No restrictions Discharge Activity: May Not Drive, May Shower - wear plastic bag over right hand when showering., - - elevate right hand. no lifting with right hand. May shower in (days): 1 - wear plastic bag over right hand when showering. May resume sexual activity in: No Restrictions Weight Bearing Status: Weight bearing as tolerated Lifting Restrictions: no lifting right hand. Keep extremity elevated above heart level: Right Arm Call your doctor if your incision/area has: Continuous Slow Oozing, Sudden Increased Bleeding, Increased Pain/ Swelling, Increased Redness, Foul Smelling Discharge, Swelling at the incision site Call your doctor if you observe: Fever of 101 or Higher, Coldness, Increased Pain, Shortness of breath, Chest pain, Calf discomfort, Uncontrolled pain Suture Line Care: - - after operative dressing removed in office, will apply antibiotic ointment to suture line daily. Change Dressing in (Days):: 7 - will change operative dressing in the office. Cleanse incision/area with: - - wear plastic bag over right hand when showering. Additional Instructions: Patient has Doxycycline at home and will continue them. Allergies/Adverse Reactions: Allergies No Known Allergies Allergy (Verified 04/18/20 06:06) Medications to take at Discharge Cephalexin [Keflex] 500 mg PO Q6 #40 cap 04/07/20 doxycycline hyclate 100 mg capsule 100 mg PO BID #60 cap 04/16/20 Oxycodone HCl/Acetaminophen [Percocet 5/325] 1 tablet PO Q4H PRN PRN 7 Days #40 tablet 04/18/20 The following prescriptions were given: Oxycodone HCl/Acetaminophen [Percocet 5/325] 1 tablet PO Q4H PRN PRN 7 Days #40 tablet PRN Reason: Pain Score 6-10 Transmission Status: Sent to [facility]30 Primary Care Physician: Care Physician,No Primary [Primary Care Provider] - Test Results: Test results from this visit will be discussed in further detail at your follow- up appointment, if applicable. Please Follow Up With: Stone Carey MD When: one week. call [phone] for appt. Proposed Discharge Date: 04/18/20
[2020-04-18 10:45] VITALS: BP 101/60; BP 115/68; PULSE 85; RESP 18; O2SAT 98
--- NOTE | 2020-04-18 10:50 | RAD_ITS ---
STUDY: X-RAY - RIGHT HAND, ATTENTION 4 FINGER REASON FOR EXAM: Male, 24 years old. POST OP TECHNIQUE: 3 view(s) of the finger were obtained. COMPARISON: Comparison is made with prior examination dated 04/07/2020. FINDINGS: Normal metacarpal head. Normal metacarpophalangeal joint. Normal proximal phalanx. Normal middle phalanx. Satisfactory reduction of the distal phalangeal fracture of the fourth digit. Normal proximal interphalangeal joint. Normal distal interphalangeal joint. RAD/Finger(s) Min 2 Views IMPRESSION: Satisfactory pinning of the distal phalangeal fracture of the fourth digit. Electronically Signed: Ayaan Weinstein, at 14:54 EST , Service support ,
[2020-04-18 10:58] VITALS: BP 115/68; BP 123/82; PULSE 88; RESP 18; TEMP 36.1; O2SAT 98
[2020-04-18 11:32] VITALS: BP 115/68; BP 125/86; PULSE 78; RESP 16; TEMP 36.4; O2SAT 99
== END 2020-04-18 11:50 | disposition home or self-care (01) ==
LOC: SDC 05:44 → AC 05:45
PROVIDERS: Referring Provider Surgery; Visit Provider Surgery
PROC: (CPT 11740; principal; 2020-04-18 07:15)
DX: S60.141A Contusion of right ring finger with damage to nail, initial encounter (principal); S69.91XA Unspecified injury of right wrist, hand and finger(s), initial encounter; S62.634B Displaced fracture of distal phalanx of right ring finger, initial encounter for open fracture; M86.9 Osteomyelitis, unspecified; W31.9XXA Contact with unspecified machinery, initial encounter; Y92.63 Factory as the place of occurrence of the external cause; S62.636B Displaced fracture of distal phalanx of right little finger, initial encounter for open fracture; F17.200 Nicotine dependence, unspecified, uncomplicated; Z11.59 Encounter for screening for other viral diseases; M19.90 Unspecified osteoarthritis, unspecified site; J45.909 Unspecified asthma, uncomplicated
CPT/HCPCS: 11740; 11760; 26236; 26756; 26951; 73140; 76000; 87070; 87075; 87077; 87102; 87176; 87186; 87205; 87206; 87426; 88304; 88305; 88311; J7120

== ENCOUNTER → 2020-05-09 12:18 | Outpatient (CLI) | payer OTHER, SELFPAY ==
--- NOTE | 2020-05-09 12:14 | RAD_ITS ---
STUDY: X-RAY - RIGHT HAND, ATTENTION FOURTH FINGER REASON FOR EXAM: Male, 24 years old. FOLLOW UP POST OP. RECENT KWIRE FIXATION TECHNIQUE: 3 view(s) of the finger were obtained. COMPARISON: 04/18/2020. FINDINGS: K wires at the fourth digit. Surgical hardware appears intact/well aligned Comminuted right fourth distal phalanx fracture in near-anatomic alignment. Amputation at the fifth distal phalanx. No acute dislocation. No acute cortical destruction. Soft tissue swelling. Bandages at the fourth and fifth digits. RAD/Finger(s) Min 2 Views IMPRESSION: Well aligned fourth distal phalanx fracture pinning Fifth distal phalanx amputation Soft tissue swelling with bandages Electronically Signed: Masoud Morales DO at 13:44 EST Tel , Service support ,
== END ==
PROVIDERS: Referring Provider Surgery; Visit Provider Surgery
DX: S62.634B Displaced fracture of distal phalanx of right ring finger, initial encounter for open fracture (principal); S60.141A Contusion of right ring finger with damage to nail, initial encounter; S69.91XA Unspecified injury of right wrist, hand and finger(s), initial encounter; W31.9XXA Contact with unspecified machinery, initial encounter; Y92.63 Factory as the place of occurrence of the external cause
CPT/HCPCS: 73140

== ENCOUNTER → 2020-05-27 15:07 | Outpatient (CLI) | payer OTHER, SELFPAY ==
--- NOTE | 2020-05-27 15:10 | RAD_ITS ---
STUDY: X-RAY - RIGHT HAND REASON FOR EXAM: Male, 24 years old. follow up 4th digit with k-wire fixation TECHNIQUE: 3 view(s) of the hand. COMPARISON: 04/07/2020, 04/18/2020, 05/09/2024. FINDINGS: Stable appearance of 2 orthopedic K wires passing through the fourth distal phalanx. One of these passes through the distal interphalangeal joint and into the middle phalanx. Fractures of the tuft of the fourth distal phalanx are in near anatomic alignment and position and appear these partially healed. Fracture lines are barely visible. Abnormal fifth digit, stable with what appears to be amputation of the tip of the finger and passing through the mid shaft of the fifth distal phalanx. No other abnormalities. RAD/Hand Min 3 Views IMPRESSION: Interval healing of fractures of the fourth distal phalanx in near anatomic alignment and position. Electronically Signed: Jonathan Kelley MD at 0:00 EST , Service support ,
== END ==
PROVIDERS: Referring Provider Nurse Practitioner Family; Visit Provider Nurse Practitioner Family
DX: S62.634A Displaced fracture of distal phalanx of right ring finger, initial encounter for closed fracture (principal); S60.141A Contusion of right ring finger with damage to nail, initial encounter; S62.634B Displaced fracture of distal phalanx of right ring finger, initial encounter for open fracture; S62.636B Displaced fracture of distal phalanx of right little finger, initial encounter for open fracture; S69.91XA Unspecified injury of right wrist, hand and finger(s), initial encounter; W31.9XXA Contact with unspecified machinery, initial encounter; Y92.63 Factory as the place of occurrence of the external cause; F17.200 Nicotine dependence, unspecified, uncomplicated
CPT/HCPCS: 73130

== ENCOUNTER → 2020-06-11 15:04 | Outpatient (CLI) | payer OTHER, SELFPAY ==
--- NOTE | 2020-06-11 15:08 | RAD_ITS ---
follow up k-wire fixation, 4th digit COMPARISON: 12/26/2019 FINDINGS: # of images incl. paperwork: 3 XR Hand Min 3 Views: Right BONE AND JOINTS: Again noted is a tuft fracture involving the fourth finger fixated with 2 K wires in similar position a prior study. SOFT TISSUES: Unremarkable. No radiopaque foreign body. RAD/Hand Min 3 Views IMPRESSION: Fourth finger tuft fracture fixated with 2 K wires in similar position to prior study. Fifth finger distal phalanx partial amputation is again noted at 0454 Reported and signed by: Daphnie Quiroz DO Electronically Signed: Daphnie Quiroz DO at 4:53 EST Tel , Service support ,
== END ==
PROVIDERS: Referring Provider Nurse Practitioner Family; Visit Provider Nurse Practitioner Family
DX: S62.634A Displaced fracture of distal phalanx of right ring finger, initial encounter for closed fracture (principal); S60.141A Contusion of right ring finger with damage to nail, initial encounter; S62.634B Displaced fracture of distal phalanx of right ring finger, initial encounter for open fracture; S62.636B Displaced fracture of distal phalanx of right little finger, initial encounter for open fracture; S69.91XA Unspecified injury of right wrist, hand and finger(s), initial encounter; W31.9XXA Contact with unspecified machinery, initial encounter; Y92.63 Factory as the place of occurrence of the external cause; F17.200 Nicotine dependence, unspecified, uncomplicated
CPT/HCPCS: 73130

== ENCOUNTER → 2020-06-25 15:17 | Outpatient (CLI) | payer OTHER, SELFPAY ==
--- NOTE | 2020-06-25 15:23 | RAD_ITS ---
STUDY: X-RAY - RIGHT HAND REASON FOR EXAM: Male, 24 years old. Resent why our surgery. Follow-up. TECHNIQUE: 3 view(s) of the hand. COMPARISON: 06/11/2020 FINDINGS: Normal radiocarpal articulation. Normal distal radioulnar joint. Normal visualized carpal bones. Normal carpal articulations Normal carpometacarpal articulation of the thumb. Normal second through fifth carpometacarpal joints. Normal metacarpi. 2 K wires traversing the distal interphalangeal joint of the fourth digit, unchanged. No complications. The soft tissue structures are unremarkable. RAD/Hand Min 3 Views IMPRESSION: Stable fixation of the distal aspect of the fourth digit with no complications. Electronically Signed: Ephraim Rosas MD at 17:05 EST , Service support ,
== END ==
PROVIDERS: Referring Provider Surgery; Visit Provider Surgery
DX: S62.634A Displaced fracture of distal phalanx of right ring finger, initial encounter for closed fracture (principal); F17.200 Nicotine dependence, unspecified, uncomplicated; S60.141A Contusion of right ring finger with damage to nail, initial encounter; S62.634B Displaced fracture of distal phalanx of right ring finger, initial encounter for open fracture; S62.636B Displaced fracture of distal phalanx of right little finger, initial encounter for open fracture; S69.91XA Unspecified injury of right wrist, hand and finger(s), initial encounter; W31.9XXA Contact with unspecified machinery, initial encounter; Y92.63 Factory as the place of occurrence of the external cause
CPT/HCPCS: 73130

== ENCOUNTER 2021-11-16 15:55 | Emergency (ER) | payer SELFPAY ==
[2021-11-16 15:56] VITALS: BP 142/89; PULSE 91; RESP 16; TEMP 36.1; O2SAT 98; BMI 23.4
--- NOTE | 2021-11-16 16:44 | ED.VIS.DENTA ---
HPI History of Present Illness Chief Complaint: Dental Informant: patient Narrative Narrative: 26-year-old male presenting to the emergency room with dental pain. He states that his tooth has been hurting for 2 weeks. States that last week he called the dentist and has an appointment in 2 weeks. He is hoping that we could provide him something for his pain. He is a smoker. [facility] Medical History (Updated 11/16/21 @ 16:[address] 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 Open fracture of distal phalanx of right little finger Open fracture of distal phalanx of right ring finger Subungual hematoma of right ring finger Home Medications amoxicillin-pot clavulanate 875 mg PO Q12H #20 tablet 11/16/21 [Rx Last Taken Unknown] naproxen 500 mg PO BID #20 tab 11/16/21 [Rx Last Taken Unknown] tramadol 50 mg PO Q6H PRN PRN 3 Days #12 tab 11/16/21 [Rx Last Taken Unknown] Allergy/AdvReac Type Severity Reaction Status Date / Time No Known Allergies Allergy Verified 11/16/21 15:56 Family History Other Alcoholism Anxiety Arthritis Asthma Breast cancer CVA (cerebral vascular accident) Cervical cancer Depression Diabetes Heart disease History of blood transfusion Hypertension Osteoporosis Ovarian cancer Seizures Skin cancer Suicide attempt Surgical History History of hand surgery Social History Smoking Status: Current every day smoker tobacco type: cigarettes alcohol intake: current substance use type: does not use additional social history: DOES TAKE ASPIRIN NEEDED DOES TAKE IBUPROFEN NEEDED ROS ROS ED Constitutional Constitutional ED: Denies chills, fever(s) or weight loss Eyes Eyes: Denies change in vision or diplopia ENT ENT ED: Reports other Details: Dental pain ; Denies ear pain, rhinorrhea or sore throat Cardiovascular Cardiovascular: Denies chest pain, orthopnea, palpitations or racing heartbeat Respiratory/Chest Respiratory/Chest: Denies cough, dyspnea or orthopnea Gastrointestinal Gastrointestinal: Denies abdominal pain, diarrhea, nausea or vomiting Genitourinary Genitourinary ED: Denies dysuria, hematuria or urinary frequency Musculoskeletal Musculoskeletal: Denies arthralgias or myalgias Integumentary Denies abscess or rash Neurologic Neurologic: Denies headache(s) or weakness Psychiatric Psychiatric: Denies anxiety, depression, suicidal ideation or suicidal thoughts Endocrine Endocrinology: Denies polydipsia, polyphagia or polyuria Allergic/Immunologic Allergic/Immunologic ED: Denies mouth swelling, tongue swelling or urticaria EXAM Physical Exam Const Vital Signs: 11/16/21 15:56 Temperature 97 F L Temperature Source Temporal Pulse Rate 91 Respiratory Rate 16 Blood Pressure 142/89 H Blood Pressure Mean 106 Pulse Ox 98 Oxygen Delivery Method Room Air Positive well nourished and well developed General Appearance ED: well developed HEENT Reports normocephalic, head/scalp atraumatic and moist mucous membranes HEENT Narrative: The top right posterior 2 molars are decayed down to the gumline. There is no significant swelling. No facial swelling or erythema. No trismus. There is widespread dental decay Mouth ED: Yes lips normal and Yes tongue normal Mouth: lips normal and tongue normal Teeth and Gingiva: poor dentition Eyes PERRL and EOMs intact bilaterally Neck no lymphadenopathy, supple and no JVD Resp normal respiratory effort and clear to auscultation bilaterally Cardio regular rate, regular rhythm and no murmurs GI normal to inspection, nondistended, normoactive bowel sounds and non-tender Palpation: soft Back/Spine no CVA tenderness and normal ROM Extremity normal to inspection General Extremety ED: Negative for edema General Extremity: Negative for edema Neuro oriented x3 and CN's II-XII intact bilaterally Sensorium / Orientation: alert Motor Exam: strength 5/5 throughout Psych mental status grossly normal Mood & Affect: Negative for depressed or tearful Skin no rashes or lesions noted and no wounds MDM MDM MDM Narrative Medical decision making narrative: Patient be started on Augmentin. I can write for some tramadol and anti-inflammatories. Discharge Plan Triage Chief Complaint: Dental ED Provider: Brennan Bautista Dx/Rx/DC Orders Clinical Impression: Pain, dental Instructions: ED Dental Pain Prescriptions: New tramadol 50 MG tablet 50 mg PO Q6H PRN PRN (Reason: Pain) 3 Days Qty: 12 RF: 0 naproxen 500 MG tablet 500 mg PO BID Qty: 20 RF: 0 amoxicillin-pot clavulanate [amoxicillin-pot clavulanate] 875 MG tablet 875 mg PO Q12H Qty: 20 RF: 0 Primary Care Provider: Care Physician,No Primary Referrals: Care Physician,No Primary [Primary Care Provider] -
== END 2021-11-16 16:51 | disposition home or self-care (01) ==
LOC: ED 16:37
PROVIDERS: Emergency Provider Emergency Medicine; Visit Provider Emergency Medicine
DX: K02.9 Dental caries, unspecified (principal); K08.89 Other specified disorders of teeth and supporting structures; F17.210 Nicotine dependence, cigarettes, uncomplicated; J45.909 Unspecified asthma, uncomplicated
CPT/HCPCS: 99282